=== PATIENT | female | born 1980 | race Caucasian/White ===

== ENCOUNTER 2021-04-21 17:40 | Inpatient (IN) | payer BC ==
[2021-04-21 18:35] VITALS: BMI 28.1
[2021-04-21] MEDS ORDERED: DEXTROSE 5%-LACTATED RINGERS 1,000 ML IV SCH (18:45)
[2021-04-21] MEDS ORDERED: DINOPROSTONE 10 MG VAGINAL SUPPOSITORY VG ONE (18:48)
[2021-04-21] MEDS ORDERED: MISOPROSTOL 25 MCG TABLET (COMPOUNDED BY PHARMACY) PO PRN (20:32)
[2021-04-22] MEDS ORDERED: PROMETHAZINE HCL 25 MG/1 ML VIAL ONE (01:24)
[2021-04-22] MEDS ORDERED: BUTORPHANOL TARTRATE 2 MG/ML VIAL ONE (01:24)
[2021-04-22] MEDS ORDERED: PROMETHAZINE HCL 25 MG/1 ML VIAL IVPB ONE (01:30)
[2021-04-22] MEDS ORDERED: BUTORPHANOL TARTRATE 2 MG/ML VIAL IVPUSH ONE (01:30)
[2021-04-22] MEDS ORDERED: FENTANYL/BUPIVACAINE/NS/PF - PCEA - 50 ML DISP.SYRIN EP ONE ×4 (04:16→15:03)
[2021-04-22] MEDS ORDERED: SODIUM CHLORIDE 1,000 ML IV STA (04:18)
[2021-04-22] MEDS ORDERED: BUPIVACAINE HCL/PF 0.25% (2.5MG/ML) 10 ML VIAL ONE ×2 (04:33→10:02)
[2021-04-22] MEDS: FENTANYL/BUPIVACAINE/NS/PF - PCEA - 50 ML DISP.SYRIN EP SCH ×4 (04:45→15:07)
[2021-04-22] MEDS ORDERED: OXYTOCIN 20 UNITS in 0.9% NS 20 UNIT/1,000 ML INFUS.BAG IV ONE (05:04)
[2021-04-22] MEDS ORDERED: NALOXONE HCL 0.4 MG/ML VIAL IVPUSH PRN (05:59)
[2021-04-22] MEDS: SODIUM CHLORIDE 1,000 ML IV SCH ×2 (07:10→17:45)
[2021-04-22] MEDS ORDERED: SODIUM CHLORIDE 1,000 ML IV SCH (10:20)
[2021-04-22] MEDS ORDERED: DEXTROSE 5%-LACTATED RINGERS 1,000 ML IV SCH (11:19)
[2021-04-22] MEDS ORDERED: OXYTOCIN 30 UNITS in 0.9% NS 30 UNIT/500 ML INFUS.BAG IVPB SCH (13:00)
[2021-04-22] MEDS ORDERED: WITCH HAZEL 50% (TUCKS) 40 PAD/JAR PAD TP PRN (19:15)
[2021-04-22] MEDS ORDERED: BENZOCAINE 28 GM HEMORRHOIDAL OINTMENT TP PRN (19:15)
[2021-04-22] MEDS ORDERED: OXYTOCIN 20 UNITS in 0.9% NS 20 UNIT/1,000 ML INFUS.BAG IV SCH (19:15)
[2021-04-22] MEDS ORDERED: BENZOCAINE 20% 57 GM BOTTLE TP PRN (19:15)
[2021-04-22] MEDS ORDERED: ACETAMINOPHEN 325 MG TABLET (FP) PO PRN (19:15)
[2021-04-22 19:28] LABS: CORD BASE EXCESS -9.4 mmol/L (0-2); CORD HCO3 19.2 mmHg (20-29); CORD PCO2 51.1 mmHg (30-78); CORD pH 7.193 (7.14-7.44)
[2021-04-22 19:29] LABS: CORD HCO3 17.9 mmHg (20-29); CORD PCO2 48.5 mmHg (30-78); CORD pH 7.185 (7.14-7.44)
[2021-04-22] MEDS ORDERED: IBUPROFEN 600 MG TABLET (FP) PO ONE (20:09)
[2021-04-22] MEDS: IBUPROFEN 600 MG TABLET (FP) PO PRN (20:12)
[2021-04-23] MEDS: IBUPROFEN 600 MG TABLET (FP) PO PRN ×4 (00:13→19:49)
[2021-04-23 09:17] LABS: BASO % 0.2 % (0-2.0); EOS % 0.3 % (0-4.5); HEMATOCRIT 28.3 % (32.4-45.2); HEMOGLOBIN 9.2 GM/dL (10.7-15.3); LYMPH % 10.1 % (8-40); MCH 30.7 pg (25.7-33.7); MCHC 32.5 g/dl (32.0-36.0); MEAN CELL VOLUME 94.4 fl (80-96); MEAN PLT VOLUME 8.9 fl (7.5-11.1); NEUT % 83.4 % (42.8-82.8); PLATELET COUNT 257 10^3/uL (134-434); RDW 14.9 % (11.6-15.6); WHITE BLOOD COUNT 18.4 K/mm3 (4.0-10.0)
[2021-04-23] MEDS: PRENATAL VITAMINS W/ FOLIC ACID TABLET (FP) PO SCH (09:57)
[2021-04-23] MEDS: FERROUS SO4 325 MG TABLET (FP) PO SCH (21:25)
[2021-04-23] MEDS ORDERED: SENNOSIDES/DOCUSATE COMBO (SENNA PLUS) TABLET (UD) PO PRN (22:00)
[2021-04-24] MEDS: IBUPROFEN 600 MG TABLET (FP) PO PRN ×2 (00:02→06:21)
[2021-04-24] MEDS: PRENATAL VITAMINS W/ FOLIC ACID TABLET (FP) PO SCH (10:46)
[2021-04-24] MEDS: FERROUS SO4 325 MG TABLET (FP) PO SCH (10:46)
[2021-04-24 11:23] VITALS: BP 100/52; PULSE 69; TEMP 97.6
== END 2021-04-24 13:05 | disposition home or self-care (01) | DRG 807 ==
LOC: JLDR 17:40 → EDSEX 17:40 → J3W 04-22 21:18
PROVIDERS: ADMIT Obstetrics & Gynecology Maternal & Fetal Medicine; ATTEND Obstetrics & Gynecology Maternal & Fetal Medicine
PROC: 10E0XZZ Delivery of Products of Conception, External Approach (ICD-10-PCS; principal; 2021-04-21)
PROC: 0HQ9XZZ Repair Perineum Skin, External Approach (ICD-10-PCS; 2021-04-21)
DX: O70.0 First degree perineal laceration during delivery (principal); Z37.0 Single live birth; Z3A.38 38 weeks gestation of pregnancy; O26.23 Pregnancy care for patient with recurrent pregnancy loss, third trimester
CPT/HCPCS: 36415; 36600; 59409; 82803; 85025; 88307-TC